=== PATIENT | male | born 1950 | race Hispanic/Latino ===

== ENCOUNTER → 2016-07-20 | Outpatient (CLI) | payer BC | LOC: GMAM 14:11 | PROVIDERS: ATTEND Family Medicine | DX: R31.21 Asymptomatic microscopic hematuria (principal) ==

== ENCOUNTER → 2016-11-11 | Outpatient (CLI) | payer BC ==
--- NOTE | 2016-11-12 17:59 | MRI ---
EXAM DATE: 11/11/2016 8:00 AM CDT. PROCEDURE: MR LUMBAR SPINE WITHOUT IV CONTRAST. INDICATION: LOW BACK PAIN. COMPARISON: None. TECHNIQUE: Multiplanar T1 and T2 MRI images of the lumbar were acquired without administration of intravenous contrast. FINDINGS: The lumbar vertebral bodies demonstrate normal height and alignment. There is mild intervertebral disc space height loss and desiccation seen throughout the lumbar spine. Normal marrow signal. The conus terminates at the level of L2. Unremarkable partially visualized thoracic cord. L1-L2: No significant spinal canal or neural foraminal stenosis. L2-L3: Disc bulge and ligamentous hypertrophy contributes to mild narrowing of the spinal canal. Mild bilateral facet arthropathy results in mild left foraminal narrowing. No significant right foraminal stenosis. L3-L4: Disc bulge and ligamentous hypertrophy contributes to moderate spinal canal stenosis. Moderate bilateral facet arthropathy contributes to mild bilateral foraminal narrowing. L4-L5: Disc bulge and ligamentous hypertrophy contributes to mild/moderate spinal canal stenosis. Moderate bilateral facet arthropathy contributes to moderate bilateral foraminal stenoses. L5-S1: Disc bulge and ligamentous hypertrophy contributes to mild narrowing of the spinal canal. There is a right paracentral disc extrusion which extends inferiorly along the S1 vertebral body. Facet arthropathy results in moderate right and mild left foraminal stenoses. The partially visualized abdominal pelvic organs are unremarkable. IMPRESSION: Mild/moderate multilevel spondylotic changes of the lumbar spine results in moderate spinal canal stenosis L3-L4 and L4-L5. Variable degrees of foraminal stenosis throughout the lumbar spine, most prominent at L4-L5. Right paracentral disc extrusion with inferior migration at L5-S1. Electronically signed by: Wade Preston MD 11/12/2016 5:58 PM CDT
== END | disposition home or self-care (01) ==
LOC: MRI 08:05
PROVIDERS: ATTEND Physician Assistant
DX: M47.896 Other spondylosis, lumbar region (principal)

== ENCOUNTER → 2017-04-05 | Outpatient (CLI) | payer OTHER | LOC: GMAM 10:40 | PROVIDERS: ATTEND Family Medicine | DX: E83.52 Hypercalcemia (principal); Z12.5 Encounter for screening for malignant neoplasm of prostate | CPT/HCPCS: 83970; G0103 ==

== ENCOUNTER → 2017-05-11 | Outpatient (CLI) | payer OTHER ==
--- NOTE | 2017-05-11 12:47 | US ---
EXAM DESCRIPTION: Carotid Duplex CLINICAL HISTORY: BILATERAL CAROTID STENOSIS COMPARISON: None Available. TECHNIQUE: Carotid Doppler ultrasound FINDINGS: Right Submitted images show no significant stenosis is seen in the common carotid, internal carotid or external carotid arteries. There is calcified plaque in the upper right CCA and in the right carotid bulb. Axial images show 30% area stenosis of the right CCA and 33% area stenosis of the proximal right ICA. The following flow velocities were obtained: Common carotid artery peak systolic flow velocity measures 10 8 cm/s. Internal carotid artery peak systolic flow velocity measures 76 in meters per second. External carotid artery peak systolic flow velocity measures 121 cm/s consistent with mild origin stenosis. Flow in the right vertebral artery is antegrade. The right internal carotid to common carotid peak systolic flow velocity ratio equals 0.7 which is normal. Left Submitted images show normal caliber of the left common carotid artery. Calcified plaque is seen at the carotid bifurcation involving origins of the internal and external carotid arteries. Axial images suggest 78% area stenosis of the left carotid bulb and 92% area stenosis of the left ICA. Flow velocity measurements would suggest a somewhat less severe stenosis of the internal carotid artery however. The following flow velocities were obtained: Common carotid artery peak systolic flow velocity measures 126 cm/s Internal carotid artery peak systolic flow velocity measures 66 cm/s. External carotid artery peak systolic flow velocity measures 1 14 cm/s. Flow in the left vertebral artery is antegrade. The left internal carotid to common carotid peak systolic flow velocity ratio of 0.5 is normal. IMPRESSION: Extensive arteriosclerotic plaque at the carotid bifurcations bilaterally and in the upper right CCA. Mild elevation of flow velocities in the external carotid arteries and left common carotid artery. Transverse images suggest 78% area stenosis of the left carotid bulb and 92% area stenosis of the proximal left internal carotid artery. See above. Antegrade flow in the vertebral arteries. Electronically signed by: Jacinto Matson MD 05/11/2017 12:46 PM CDT
--- NOTE | 2017-05-11 12:52 | US ---
Exam: Bilateral lower extremity arterial Doppler sonogram CLINICAL HISTORY: Symptoms TECHNIQUE: Doppler sonographic evaluation of the bilateral lower extremities was performed. FINDINGS: Right Submitted sonographic images reveal widely patent vessels with no significant stenosis. Normal triphasic flow throughout the right lower extremity vessels. There is calcified plaque in the right common femoral and superficial femoral arteries. Positive arterial flow below the right knee. The following peak systolic flow flow velocity measurements were obtained: Common femoral artery velocity equals 98 centimeters per second , triphasic. Superficial femoral artery velocity equals 92-85 centimeters per second , triphasic. Popliteal artery velocity equals 67 centimeters per second , triphasic. Peroneal artery velocity equals 93 centimeters per second , triphasic. Posterior tibial artery velocity equals 55.5 centimeters per second , biphasic. Dorsalis pedis artery velocity equals 63 centimeters per second , triphasic. Left Submitted sonographic images reveal normal widely patent left lower extremity arteries with multiphasic flow and no significant stenosis. There is calcified plaque in the left common femoral and superficial femoral arteries without visualized stenosis. Positive arterial flow below the left knee. The following peak systolic flow flow velocity measurements were obtained: Common femoral artery velocity equals 80 centimeters per second , triphasic. Superficial femoral artery velocity equals 68-88 centimeters per second , triphasic. Popliteal artery velocity equals 76 centimeters per second , triphasic. Peroneal artery velocity equals 62 centimeters per second , triphasic. Posterior tibial artery velocity equals 92 centimeters per second , triphasic. Dorsalis pedis artery velocity equals 65 centimeters per second , triphasic. IMPRESSION: Normal multiphasic flow in the lower extremity arteries with no significant stenosis. Electronically signed by: Jacinto Matson MD 05/11/2017 12:50 PM CDT
== END | disposition home or self-care (01) ==
LOC: US 08:31
PROVIDERS: ATTEND Family Medicine
DX: I65.23 Occlusion and stenosis of bilateral carotid arteries (principal); R94.39 Abnormal result of other cardiovascular function study

== ENCOUNTER → 2017-05-17 | Outpatient (CLI) | payer OTHER ==
--- NOTE | 2017-05-17 18:12 | CT ---
EXAM: CTA Neck CLINICAL INDICATION: 67-year-old male with carotid artery stenosis. COMPARISON: None. TECHNIQUE: CT angiography of the neck following dynamic bolus of intravenous contrast. 3D reformatted reconstructions were performed on an independent workstation. This exam was performed according to our departmental dose optimization program which includes use of automated exposure control, adjustment of the mA and/or kV according to patient size and/or use of iterative reconstruction technique. FINDINGS: CTA neck: Patent flow opacification of the aortic arch origin right brachiocephalic, left common carotid, and left subclavian arteries. The bilateral vertebral artery origins are normal. Patent flow opacification through the bilateral common carotid arteries, carotid bifurcations, cervical internal/external carotid, and vertebral arteries. Moderate to severe atherosclerotic narrowing/calcification of the intracranial segment of the bilateral vertebral arteries. Diminutive RIGHT vertebral artery. Dense atherosclerotic calcification of the bilateral internal carotid arteries at the level of the carotid bulb, proximal internal carotid artery. Carotid artery narrowing on the RIGHT measures 2 mm at the narrowest segment distally measuring 4 mm compatible with approximately 50% narrowing. On the LEFT narrowing of the lumen measures approximately 2 mm at the narrowest segment within the proximal internal carotid artery, distally measuring 4 mm compatible with at least 50% stenosis of the internal carotid artery. Moderate to severe narrowing of the bilateral internal carotid arteries. LEFT distal common carotid artery luminal irregularity/outpouching of the common carotid artery is present raising the question of sequela of prior dissection, small pseudoaneurysm versus atheromatous wall thickening, (series 601, image 58). IMPRESSION: 1. Dense atherosclerotic calcification of the carotid bulb/proximal internal carotid artery measuring 2 mm at the narrowest dimension, distally measuring 4 mm compatible with at least 50% bilateral carotid artery stenosis by NASCET criteria. Correlation of these findings should be made with sonography. 2. Moderate to severe atherosclerotic narrowing of the intracranial segment of the bilateral vertebral arteries. 3. LEFT distal common carotid artery luminal irregularity/outpouching is present raising the question of sequela of prior dissection, small pseudoaneurysm versus atheromatous wall thickening. Please correlate with patient clinical symptoms. Electronically signed by: Carline Ovalles MD 05/17/2017 6:11 PM CDT
== END ==
LOC: US 16:15
PROVIDERS: ATTEND Family Medicine
DX: G45.9 Transient cerebral ischemic attack, unspecified (principal); R94.2 Abnormal results of pulmonary function studies

== ENCOUNTER → 2017-08-23 | Outpatient (CLI) | payer OTHER ==
--- NOTE | 2017-08-23 16:42 | MRI ---
EXAM DESCRIPTION: Brain w/wo Contrast: Magnetic Resonance Imaging. CLINICAL HISTORY: MEMORY LOSS COMPARISON: None. TECHNIQUE: Multiplanar, high-field MRI, multiple conventional sequences, without and with gadolinium IV contrast. No adverse reactions. Multiple axial diffusion sequences. FINDINGS: Focal lesion in the hartley radiata of the posterior left frontal lobe at the level of the upper left ventricular body which is bright on gradient echo, FLAIR, and T2-weighted sequences. No diffusion restriction, no hemorrhage, and no enhancement. Low intensity on T1-weighted sequence. Almost 1 cm in greatest diameter. Small foci of hyperintense FLAIR and T2-weighted signal in the subcortical white matter in the right frontal lobe at the level of the ventricles, and the subcortical white matter of the left frontal lobe near the vertex. No diffusion restriction, hemorrhage, or contrast enhancement. Normal signal in the bilateral basal ganglia. No hemorrhage, no cerebral edema, no mass-effect. Normal contrast enhancement. Small focus of hyperintense FLAIR and T2 signal in the right side of the johnathan. Otherwise normal signal in the brainstem and cerebellar hemispheres. No hemorrhage, no cerebral edema, no mass-effect. Normal contrast enhancement. Concordance of the diffusion and non-diffusion sequences with no evidence of acute or subacute infarction. Cortical sulci, ventricles, and other CSF spaces, and the subdural spaces are age appropriate. No effacement or displacement. No midline shift. No extra-axial hemorrhage. Normal contrast enhancement. Normal signal flow void in the proximal A1 segment of the left anterior cerebral artery is not well seen. Flow-void more likely than thrombus in the left transverse sinus laterally just before the former course of the venous sinuses. Otherwise normal flow signal void in the major vessels of the platinum Velez, and the venous sinuses. IACs are symmetric bilaterally. Normal signal in the bilateral mastoid air cells. No mass effect in the bilateral Cerebellopontine angles. Normal contrast enhancement. Pituitary gland occupies most of the sella. Normal contrast enhancement. Base of the cerebellar tonsils is above the foramen magnum. Minimal mucoperiosteal thickening in the paranasal sinuses. The bony calvarium is intact. IMPRESSION: 1. Focal lesion in the coronal radiata of the left frontal lobe is most likely an area of ischemia versus cyst or chronic infarction. No hemorrhage, no abnormal contrast enhancement, and no diffusion restriction. Other lesions in the bilateral frontal lobes are most likely related to cerebral microvascular disease. Similar signal in the right johnathan. 2. Question of stenosis or abnormal vascularity involving the left intracranial ICA and the left A1 segment of the anterior cerebral artery. Recommend follow-up CTA of the head and platinum of Velez. 3. More likely flow artifact within thrombus in the lateral left transverse sinus abutting the lateral left cerebellar hemisphere. Electronically signed by: Gene French MD 08/23/2017 4:41 PM CDT
== END ==
LOC: MRI 09:01
PROVIDERS: ATTEND Family Medicine
DX: R41.89 Other symptoms and signs involving cognitive functions and awareness (principal)

== ENCOUNTER → 2017-12-26 | Outpatient (CLI) | payer OTHER | LOC: GMAM 11:12 | PROVIDERS: ATTEND Family Medicine | DX: R63.4 Abnormal weight loss (principal); N40.0 Benign prostatic hyperplasia without lower urinary tract symptoms; K59.00 Constipation, unspecified ==

== ENCOUNTER → 2017-12-27 | Outpatient (CLI) | payer OTHER ==
--- NOTE | 2017-12-30 11:10 | CT ---
Procedure: CT ABDOMEN PELVIS WITHOUT THEN WITH IV CONTRAST Exam Date: 12/27/2017 Ordering Provider: ANN PATTERSON Clinical Indication: WEIGHT LOSS Comparison: None TECHNIQUE: 5 mm images were taken through the abdomen and pelvis before and after the administration of nonionic intravenous contrast material. Oral contrast was not administered. Coronal and sagittal reformatted images were generated. This exam was performed according to our departmental dose optimization program which includes use of automated exposure control, adjustment of the mA and/or kV according to patient size and/or use of iterative reconstruction technique. FINDINGS: Lower chest: No focal lung consolidation. Abdomen: Liver and biliary system: No suspicious liver lesions. No calcified gallstones. Spleen: Evidence of prior granulomatous disease. Pancreas: Unremarkable Adrenal glands: Right adrenal gland is unremarkable. Left adrenal gland is mildly thickened. Kidneys, ureters, bladder: No hydronephrosis in either kidney. No suspicious renal lesions. Renal collecting systems and ureters are unremarkable. Urinary bladder is unremarkable. Lymph nodes: No lymphadenopathy. Retroperitoneum, abdominal wall, peritoneal cavity: No ascites. No free air. Vessels: No abdominal aortic aneurysm. Aortic calcification. Pelvis: Lymph nodes: No lymphadenopathy Bowel: No bowel obstruction. Moderate to large colonic stool burden. No evidence of acute appendicitis. Pelvic organs: Heterogeneous enlarged prostate gland indents the underside of the bladder, correlate with PSA. Bones: Multilevel spondylosis. IMPRESSION: 1. Heterogeneous enlarged prostate gland indents the underside of the bladder, correlate with PSA. 2. Moderate to large colonic stool burden. Electronically signed by: Israel Whitmore MD 12/30/2017 11:09 AM RN DIALYSIS
== END ==
LOC: CT 07:53
PROVIDERS: ATTEND Family Medicine
DX: R63.4 Abnormal weight loss (principal)

== ENCOUNTER → 2018-04-13 | Outpatient (CLI) | payer OTHER | LOC: GMAM 14:34 | PROVIDERS: ATTEND Family Medicine | DX: N40.0 Benign prostatic hyperplasia without lower urinary tract symptoms (principal) ==

== ENCOUNTER 2018-04-15 09:57 | Emergency (ER) | payer MEDICARE, OTHER ==
[2018-04-15 10:19] VITALS: TEMP 97.9
[2018-04-15] MEDS ORDERED: LIDOCAINE HCL 2% (MOUTH-THROAT) 15 ML UD ONE (10:28)
[2018-04-15] MEDS ORDERED: ALUM & MAG HYDROX-SIMETHICONE 30 ML UD ONE (10:28)
[2018-04-15] MEDS ORDERED: SUCRALFATE 1 GM/10 ML 1 GM UD PO ONE (10:29)
[2018-04-15] MEDS ORDERED: ALUM & MAG HYDROX-SIMETHICONE 30 ML, LIDOCAINE VISCOUS 2% 15 ML PO ONE ×2 (10:29)
--- NOTE | 2018-04-15 10:29 | ED.PDOC ---
History of Present Illness - General Chief Complaint: Abdominal Pain Stated Complaint: abd pain Time Seen by Provider: 04/15/18 10:27 Information Source: patient, RN notes reviewed, family Additional Information: 68 YEAR OLD MALE PRESENTS WITH PERIUMBILICAL PAIN SINCE THIS MORNING ASSOCIATED WITH SOME NAUSEA NO FEVER NO DYSURIA NO DIARRHEA NO BLOOD IN EMESIS NO CHEST PAIN NO SHORTNESS OF BREATH REPORTED HE HAS " ABDOMINAL INFECTION " A COUPLE OF YEARS AGO AND HE IS CONCERNED IT MAY BE COMING BACK - History of Present Illness Abdominal Pain Onset Location: periumbilical Pain Radiation: no radiation Quality: mild, dull Timing/Duration: 4-6 hours Improving Factors: nothing Worsening Factors: nothing Associated Symptoms: nausea/vomiting Review of Systems - Review of Systems Constitutional: States: no symptoms reported EENTM: States: no symptoms reported Respiratory: States: no symptoms reported Cardiology: States: no symptoms reported Gastrointestinal/Abdominal: States: no symptoms reported Genitourinary: States: no symptoms reported Musculoskeletal: States: no symptoms reported Skin: States: no symptoms reported Neurological: States: no symptoms reported Endocrine: States: no symptoms reported Hematologic/Lymphatic: States: no symptoms reported Past Medical History (General) - Patient Medical History Hx Seizures: No Hx Stroke: Yes - TIA Hx Asthma: No Hx of COPD: No Hx Cardiac Disorders: Yes Hx Congestive Heart Failure: No Hx Hypertension: Yes Hx Thyroid Disease: No Hx Diabetes: Yes Hx Gastroesophageal Reflux: No Hx Renal Disease: No Hx Cancer: No - Vaccination History Hx Tetanus, Diphtheria Vaccination: No Hx Influenza Vaccination: Yes Hx Pneumococcal Vaccination: Yes Immunizations Up to Date: Yes - Social History Hx Tobacco Use: No Hx Alcohol Use: No Hx Substance Use: No Hx Substance Use Treatment: No Hx Depression: No Family Medical History - Family History Mother Family History: Unknown Physical Exam - Physical Exam General Appearance: Alert, Comfortable Eyes, Ears, Nose, Throat Exam: PERRL/EOMI, normal ENT inspection Neck: non-tender, full range of motion, supple Respiratory: chest non-tender, lungs clear, normal breath sounds Cardiovascular/Chest: normal peripheral pulses, regular rate, rhythm, no edema, no gallop, no JVD Gastrointestinal/Abdominal: normal bowel sounds, non tender, soft, no organomegaly, no pulsatile mass, other - MINIMAL EPIGASTRIC TENDERNESS NO SIGNS OF PERITONEAL IRRITATION Extremity: normal range of motion, non-tender 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 Copy, Patient Portal Self Enrollment Instructions: DI for Abdominal Pain-Adult Referrals: Oziel Long MD [Primary Care Provider] - 1-2 Weeks Home Medications: Ambulatory Orders Clopidogrel 04/15/18 Esomeprazole Magnesium [Nexium] 40 mg PO Q24HR 30 Days #1 gra 04/15/18 Lisinopril/Hctz 20-25 mg 04/15/18 Metformin HCl 04/15/18 Oxybutinin Chloride 04/15/18 Comments: PLEASE STAY ON SOFT NON SPICEY DIET FOR FEW DAYS IF SYMPTOMS GET WORSE RETURN TO ER
[2018-04-15 11:32] VITALS: BP 130/70; O2SAT 98
== END 2018-04-15 11:31 | disposition home or self-care (01) ==
LOC: ER 09:57
DX: K29.70 Gastritis, unspecified, without bleeding (principal); I51.9 Heart disease, unspecified; I10 Essential (primary) hypertension; E11.9 Type 2 diabetes mellitus without complications; Z86.73 Personal history of transient ischemic attack (TIA), and cerebral infarction without residual deficits

== ENCOUNTER → 2019-06-24 | Outpatient (CLI) | payer MEDICARE | LOC: GMAM 11:42 | PROVIDERS: ATTEND Family Medicine | DX: Z12.5 Encounter for screening for malignant neoplasm of prostate (principal); I10 Essential (primary) hypertension; E11.9 Type 2 diabetes mellitus without complications ==

== ENCOUNTER 2019-06-27 09:21 | Emergency (ER) | payer MEDICARE ==
[2019-06-27 09:47] VITALS: TEMP 97.6
[2019-06-27] MEDS ORDERED: CHLORHEXIDINE GLUCONATE 4 % 15 ML UD TOP ONE (09:48)
--- NOTE | 2019-06-27 10:42 | ED.PDOC ---
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 Patient states his tetanus shot is up-to-date. Animal control has the animal and will have it tested for rabies. Patient complains of a burning searing pain in bilateral hands. It is also throbbing. Worse with movement or palpation or if he gets water on them. Better when they are covered with ointment. Nonradiating. Moderate in intensity. Occurred: just prior to arrival Severity: moderate Pain Location: upper extremity - Hands bilaterally Method of Injury: other - Cat scratches and bites. Improving Factors: medication - Covering them with ointment. Worsening Factors: movement Loss of Consciousness: no loss of consciousness Associated Symptoms (Fall): denies symptoms Allergies/Adverse Reactions: Allergies NO KNOWN ALLERGY Allergy (Verified 06/27/19 09:47) Home Medications: Ambulatory Orders Clopidogrel 04/15/18 Esomeprazole Magnesium [Nexium] 40 mg PO Q24HR 30 Days #1 gra 04/15/18 Lisinopril/Hctz 20-25 mg 04/15/18 Metformin HCl 04/15/18 Oxybutinin Chloride 04/15/18 Amoxicillin & Pot Clavulanate [Augmentin Tab] 875 mg PO BID #20 tab 06/27/19 Review of Systems - Review of Systems Constitutional: States: no symptoms reported, see HPI. Denies: chills, fever EENTM: States: no symptoms reported Respiratory: States: no symptoms reported. Denies: cough, short of breath Cardiology: States: no symptoms reported. Denies: chest pain, palpitations, syncope Gastrointestinal/Abdominal: States: no symptoms reported. Denies: abdominal pain, diarrhea, nausea Genitourinary: States: no symptoms reported Musculoskeletal: States: no symptoms reported. Denies: back pain, neck pain Skin: States: see HPI, other - Multiple bites and scratches on his hands. Neurological: States: no symptoms reported. Denies: numbness, paresthesia Endocrine: States: no symptoms reported Hematologic/Lymphatic: States: no symptoms reported All other Systems: Reviewed and Negative Past Medical History (General) - Patient Medical History Hx Seizures: No Hx Stroke: Yes - TIA Hx Asthma: No Hx of COPD: No Hx Cardiac Disorders: Yes Hx Congestive Heart Failure: No Hx Hypertension: Yes Hx Thyroid Disease: No Hx Diabetes: Yes Hx Gastroesophageal Reflux: No Hx Renal Disease: No Hx Cancer: No - Vaccination History Hx Tetanus, Diphtheria Vaccination: Yes Hx Influenza Vaccination: Yes Hx Pneumococcal Vaccination: Yes - Social History Hx Tobacco Use: No Hx Alcohol Use: No Hx Substance Use: No Hx Substance Use Treatment: No Hx Depression: No Family Medical History - Family History Mother Family History: Unknown Physical Exam - Physical Exam General Appearance: Alert, Anxious, Obvious distress, Well Developed, Well Groomed, Well Hydrated, Well Nourished Head Injury: no evidence of injury Eye Exam: bilateral normal ENT Exam: hearing grossly normal, no evidence of ENT injury Neck Exam: non-tender, full range of motion, normal alignment Cardiovascular/Respiratory: regular rate, rhythm, no M/R/G, normal peripheral pulses, no JVD Gastrointestinal/Abdominal: normal bowel sounds, non tender, soft Back Exam: normal inspection, no CVA tenderness, no vertebral tenderness Extremity Exam: normal range of motion, other - Bilateral hands with multiple cat scratches and cat bites. Bleeding is controlled. There are no lacerations that require suturing. 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 - [place] Coma Score Best Eye Response ([place]): (4) open spontaneously Best Verbal Response ([place]): (5) oriented Best Motor Response ([place]): (6) obeys commands Progress - Progress Progress: Differential diagnosis: Cat bite, cat scratches, hand laceration, tendon injury among others. 06/27/19 10:44 Patient's wounds have been washed and dressed. Patient's tetanus is up-to-date. Plan on starting on antibiotics for prophylaxis for Pasteurella multi-also do. I have discussed this plan of care with the patient and his as well as his son and they voiced understanding and agreement with the plan of care. Augie Norwood M.D. #[id number] Departure - Departure Clinical Impression: Cat bite of finger Qualifiers: Encounter type: initial encounter Qualified Code(s): S61.259A - Open bite of unspecified finger without damage to nail, initial encounter; W55.01XA - Bitten by cat, initial encounter Cat bite of hand Qualifiers: Encounter type: initial encounter Laterality: unspecified laterality Qualified Code(s): S61.459A - Open bite of unspecified hand, initial encounter; W55.01XA - Bitten by cat, initial encounter Cat bite of forearm Qualifiers: Encounter type: initial encounter Laterality: unspecified laterality Qualified Code(s): S51.859A - Open bite of unspecified forearm, initial encounter; W55.01XA - Bitten by cat, initial encounter Time of Disposition: 10:46 Disposition: Discharge to Home or Self Care Condition: Good Departure Forms: ED Discharge - Pt. Copy, Patient Portal Self Enrollment Diet: resume usual diet Activity: increase activity as tolerated Referrals: Oziel Long MD [Primary Care Provider] - 1-5 Days Prescriptions: Amoxicillin & Pot Clavulanate [Augmentin Tab] 875 mg PO BID #20 tab Home Medications: Ambulatory Orders Clopidogrel 04/15/18 Esomeprazole Magnesium [Nexium] 40 mg PO Q24HR 30 Days #1 gra 04/15/18 Lisinopril/Hctz 20-25 mg 04/15/18 Metformin HCl 04/15/18 Oxybutinin Chloride 04/15/18 Amoxicillin & Pot Clavulanate [Augmentin Tab] 875 mg PO BID #20 tab 06/27/19
[2019-06-27 10:57] VITALS: BP 124/64; O2SAT 99
== END 2019-06-27 10:57 | disposition home or self-care (01) ==
LOC: ER 09:21
DX: S61.452A Open bite of left hand, initial encounter (principal); S61.451A Open bite of right hand, initial encounter; S61.259A Open bite of unspecified finger without damage to nail, initial encounter; I10 Essential (primary) hypertension; E11.9 Type 2 diabetes mellitus without complications; Z79.899 Other long term (current) drug therapy; W55.01XA Bitten by cat, initial encounter; Y92.9 Unspecified place or not applicable

== ENCOUNTER 2019-06-28 20:00 | Emergency (ER) | payer MEDICARE ==
[2019-06-28] MEDS ORDERED: MORPHINE SULFATE INJ 10 MG/ML VIAL IV ONE (20:13)
[2019-06-28] MEDS ORDERED: ONDANSETRON INJ 4 MG/2 ML VIAL IV ONE (20:13)
[2019-06-28] MEDS ORDERED: AMPICILLIN & SULBACTAM SODIUM 3 GM in SODIUM CHL 0.9% 100ML MINI-BAG 100 ML IVPB ONE (20:13)
[2019-06-28 20:32] VITALS: TEMP 97.3
--- NOTE | 2019-06-28 20:32 | ED.PDOC ---
History of Present Illness - General Chief Complaint: Bite: Animal/Insect/Human Stated Complaint: swelling/pain to right hand Time Seen by Provider: 06/28/19 20:04 Source: patient, RN notes reviewed, Vital Signs reviewed, old records Exam Limitations: no limitations - History of Present Illness Initial Comments: This is a 69-year-old male presenting to the emergency department for worsening swelling to the right index and long fingers after a cat bite 2 days ago.He states the bite occurred when he was placing a cat into a carrier. Patient states the cat is an outside pet of his. He states immunizations for the cat are up-to-date. He took the cat to the vet office, where the cat is currently being observed for rabies symptoms. He was seen in the emergency department yesterday and discharged home with Augmentin. He states he has taken 2 doses, and swelling is gotten worse. He denies any fever. He does have history of type 2 diabetes, takes metformin. States blood sugars slightly elevated at 170 today. His last DTaP was in 2018. No cough, shortness of breath, URI symptoms, no known COVID-19 contacts. Allergies/Adverse Reactions: Allergies NO KNOWN ALLERGY Allergy (Verified 06/27/19 09:47) Home Medications: Ambulatory Orders Clopidogrel 04/15/18 Esomeprazole Magnesium [Nexium] 40 mg PO Q24HR 30 Days #1 gra 04/15/18 Lisinopril/Hctz 20-25 mg 04/15/18 Metformin HCl 04/15/18 Oxybutinin Chloride 04/15/18 Amoxicillin & Pot Clavulanate [Augmentin Tab] 875 mg PO BID #20 tab 06/27/19 Acetaminophen W/ Codeine [Tylenol W/ CODEINE #3] 1 - 2 ea PO Q6H PRN #20 06/28/19 Doxycycline Hyclate 100 mg PO Q12H #14 tab 06/28/19 Review of Systems - Review of Systems Constitutional: Denies: chills, fever EENTM: Denies: nose pain, throat swelling, mouth pain Respiratory: Denies: cough, short of breath, stridor Gastrointestinal/Abdominal: Denies: diarrhea, nausea, vomiting Genitourinary: Denies: dysuria, hematuria Musculoskeletal: States: joint pain, joint swelling. Denies: back pain, muscle stiffness, neck pain Skin: Denies: dryness, rash Neurological: Denies: headache, numbness, paresthesia, tingling Endocrine: States: no symptoms reported Hematologic/Lymphatic: States: no symptoms reported Past Medical History (General) - Patient Medical History Hx Seizures: No Hx Stroke: Yes - TIA Hx Asthma: No Hx of COPD: No Hx Cardiac Disorders: Yes Hx Congestive Heart Failure: No Hx Hypertension: Yes Hx Thyroid Disease: No Hx Diabetes: Yes Hx Gastroesophageal Reflux: No Hx Renal Disease: No Hx Cancer: No - Vaccination History Hx Tetanus, Diphtheria Vaccination: Yes Hx Influenza Vaccination: Yes Hx Pneumococcal Vaccination: Yes - Social History Hx Tobacco Use: No Hx Alcohol Use: No Hx Substance Use: No Hx Substance Use Treatment: No Hx Depression: No Family Medical History - Family History Mother Family History: Unknown Physical Exam - Physical Exam General Appearance: Alert, Comfortable, No apparent distress Eye Exam: bilateral normal Ears, Nose, Throat: hearing grossly normal, normal ENT inspection Neck: full range of motion, supple Respiratory: lungs clear, normal breath sounds, no respiratory distress, no accessory muscle use Cardiovascular/Chest: normal peripheral pulses, regular rate, rhythm, no edema, no gallop, no JVD Back Exam: normal inspection, no vertebral tenderness Extremity: other - There are multiple puncture wounds to the right index and long fingers with some localized swelling over the distal and middle phalanges of these fingers. There is no tenderness over the flexor tendon, he is able to flex fingers to approximately 60 degrees. There is no fusiform swelling. Cap refill is less than 2 seconds. Exam does not appear to be consistent with flexor tenosynovitis of either of these fingers. Neurologic: no motor/sensory deficits, alert, normal mood/affect Skin Exam: warm/dry Lymphatic: no adenopathy, other - No axillary lymphadenopathy Progress - Progress Progress: 06/28/19 22:14 Recheck. Discussed lab findings, x-ray findings. Explained rationale to patient and son as to why he does not need rabies prophylaxis at this time. Cat is currently with the vet, who will be observing for signs and symptoms of rabies. I explained that they will need to keep in contact with the insulation manager and will need to seek medical attention should the cat display any signs of rabies. I explained that this unlikely since the cat is a vaccinated pet. I explained high risk of infection associated with cat bites and scratches. He I recommended he continue the Augmentin as scheduled, will add doxycycline. At this time I do not feel the localized swelling to the fingers warrants admission. I recommended to keep the hand elevated, finish antibiotics. Warnings given to return for increasing swelling, fever, purulent drainage, discoloration of the fingers, or any other concerns. DDX: Fracture, cellulitis, osteomyelitis, hyperglycemia, exam not consistent with tenosynovitis (very low suspicion at this time) MDM: Patient presenting the second time in 24 hours for swelling to the fingers after a cat bite. He was seen in the emergency department yesterday, discharged home with Augmentin. Cat is currently under quarantine with insulation manager, has not shown any symptoms to their knowledge. No indication for prophylaxis at this time. X-ray is normal, no leukocytosis, ESR/CRP are normal. Blood glucose minimally elevated at 170. No [place] signs suggestive of tenosynovitis on exam today. He has good range of motion, no flexor tendon tenderness, no fusiform swelling. I explained high risk of infection associated with cat bite/scratches. He is currently on Augmentin, will add doxycycline. Recommended follow-up with PCP in 3 to 5 days for recheck. Jose Tapia DO [facility] #[id number] - Results/Orders Results/Orders: EXAM DESCRIPTION: XR HAND, 3 OR MORE VIEWS CLINICAL HISTORY: cat bite, swelling to index and long finger TECHNIQUE: Three views of the right hand are submitted. COMPARISON: None available for comparison FINDINGS: Bones: No acute or remote fracture deformity. No osseous destruction or erosion. Joints: Mild degenerative changes at the radiocarpal and triscaphe articulations. No dislocation. Soft tissues: Generalized soft tissue swelling about the fingers most pronounced at the 2nd through 4th digits. IMPRESSION: Generalized soft tissue swelling most pronounced at the 2nd through 4th digits. No acute osseous abnormality. Electronically signed by: Jyoti Villalobos MD 06/28/2019 8:34 PM CDT Laboratory Results - last 24 hr 06/28/19 06/28/19 06/28/19 20:27 20:27 20:27 WBC 5.6 RBC 3.72 L Hgb 12.2 L Hct 36.6 L MCV 98.3 H MCH 32.9 H MCHC 33.5 RDW 14.2 Plt Count 208 MPV 8.7 Absolute Neuts (auto) 3.60 Absolute Lymphs (auto) 1.20 Absolute Monos (auto) 0.50 Absolute Eos (auto) 0.10 Absolute Basos (auto) 0.00 Neutrophils % 65.4 Lymphocytes % 22.2 Monocytes % 9.2 H Eosinophils % 2.4 Basophils % 0.8 ESR 12 Sodium 134 L Potassium 3.6 Chloride 100 L Carbon Dioxide 27 Anion Gap 10.6 L BUN 15 Creatinine 0.83 BUN/Creatinine Ratio 18.1 Random Glucose 169 H Serum Osmolality 273.0 L Calcium 8.8 C-Reactive Protein 0.6 Departure - Departure Clinical Impression: Cat bite of finger, Cellulitis Disposition: Discharge to Home or Self Care Condition: Good Departure Forms: ED Discharge - Pt. Copy, Patient Portal Self Enrollment Instructions: DI for Animal Bites Referrals: Oziel Long MD [Primary Care Provider] - 1-5 Days Prescriptions: Acetaminophen W/ Codeine [Tylenol W/ CODEINE #3] 1 - 2 ea PO Q6H PRN #20 PRN Reason: Moderate To Severe Pain Doxycycline Hyclate 100 mg PO Q12H #14 tab Home Medications: Ambulatory Orders Clopidogrel 04/15/18 Esomeprazole Magnesium [Nexium] 40 mg PO Q24HR 30 Days #1 gra 04/15/18 Lisinopril/Hctz 20-25 mg 04/15/18 Metformin HCl 04/15/18 Oxybutinin Chloride 04/15/18 Amoxicillin & Pot Clavulanate [Augmentin Tab] 875 mg PO BID #20 tab 06/27/19 Acetaminophen W/ Codeine [Tylenol W/ CODEINE #3] 1 - 2 ea PO Q6H PRN #20 06/28/19 Doxycycline Hyclate 100 mg PO Q12H #14 tab 06/28/19 Additional Instructions: Wash wounds with soap and water twice a day. Keep wounds clean, dry, covered. Return to the emergency room for increasing pain, increasing swelling, fever, pus draining out of wounds, or any other concerns. Since the cat is currently being observed, there is no indication for rabies prophylaxis at this time. Keep in contact with your insulation manager for instructions should the cat display any symptoms of rabies.
[2019-06-28] MEDS ORDERED: CHLORHEXIDINE GLUCONATE 4 % 15 ML UD TOP ONE (20:35)
--- NOTE | 2019-06-28 20:35 | RAD ---
EXAM DESCRIPTION: XR HAND, 3 OR MORE VIEWS CLINICAL HISTORY: cat bite, swelling to index and long finger TECHNIQUE: Three views of the right hand are submitted. COMPARISON: None available for comparison FINDINGS: Bones: No acute or remote fracture deformity. No osseous destruction or erosion. Joints: Mild degenerative changes at the radiocarpal and triscaphe articulations. No dislocation. Soft tissues: Generalized soft tissue swelling about the fingers most pronounced at the 2nd through 4th digits. IMPRESSION: Generalized soft tissue swelling most pronounced at the 2nd through 4th digits. No acute osseous abnormality. Electronically signed by: Jyoti Villalobos MD 06/28/2019 8:34 PM CDT
[2019-06-28 21:11] VITALS: O2SAT 97
[2019-06-28 22:03] VITALS: BP 139/78
[2019-06-28] MEDS ORDERED: HYDROcodone 5MG/APAP 325MG 1 EA TAB PO ONE (22:07)
[2019-06-28] MEDS ORDERED: DOXYCYCLINE HYCLATE CAP 100 MG CAP PO ONE (22:07)
== END 2019-06-28 22:21 | disposition home or self-care (01) ==
LOC: ER 20:00
DX: L03.011 Cellulitis of right finger (principal); E11.9 Type 2 diabetes mellitus without complications; Z79.899 Other long term (current) drug therapy
CPT/HCPCS: 36415; 73130; 80048; 85025; 85651; 86140; J0295; J2270; J2405; J7050